=== PATIENT | female | born 1975 | race African-American/Black ===

== ENCOUNTER 2019-02-12 16:48 | Emergency (ER) | payer OTHER ==
--- NOTE | 2019-02-12 17:03 | PDOC ---
History of Present Illness - General Chief Complaint: Urinary Problem Stated Complaint: POSSIBLE UTI Time Seen by Provider: 02/12/19 17:02 - History of Present Illness Initial Comments: 02/12/19 18:25 44 year old woman with a history of DM who presents with 1 day of dysuria and hematuria. The patient denies fever, nausea, vomiting, diarrhea, constipation or blood in stool. She has no other complaints. ROS GENERAL/CONSTITUTIONAL: No fever or chills. No weakness. HEAD, EYES, EARS, NOSE AND THROAT: No change in vision. No ear pain or discharge. No sore throat. CARDIOVASCULAR: No chest pain or shortness of breath RESPIRATORY: No cough, wheezing, or hemoptysis. GASTROINTESTINAL: No nausea, vomiting, diarrhea or constipation. GENITOURINARY: No dysuria, frequency, or change in urination. MUSCULOSKELETAL: No joint or muscle swelling or pain. No neck or back pain. SKIN: No rash PE GENERAL: Awake, alert, and fully oriented, in no acute distress HEAD: No signs of trauma, normocephalic, atraumatic EYES: EOMI, sclera anicteric, conjunctiva clear ENT: oropharynx clear without exudates. Moist mucosa NECK: Normal ROM, supple LUNGS: No distress, speaks full sentences, clear to auscultation bilaterally HEART: Regular rate and rhythm, normal S1 and S2, no murmurs, rubs or gallops, peripheral pulses normal and equal bilaterally. ABDOMEN: Soft, nontender, normoactive bowel sounds. No guarding, no rebound. + RLQ masses EXTREMITIES : Normal inspection, Normal range of motion, no edema. No clubbing or cyanosis. NEUROLOGICAL: Cranial nerves II through XII grossly intact. Normal speech, normal gait, no focal sensorimotor deficits Pelvic: closed cervical os, physiologic fluid, no cervical motion tenderness MDM DDX including but not limited to: fibroid vs uti W/U: -ua, ucx, upreg, abd US ED Course: + UTI dose macrobid pending [facility] Qi Smith, PGY2 Emergency Medicine Past History - Past Medical History Allergies/Adverse Reactions: Allergies Allergy/AdvReac Type Severity Reaction Status Date / Time No Known Allergies Allergy Unverified 02/12/19 16:50 Home Medications: Ambulatory Orders Aspirin [Aspirin EC] 81 mg PO DAILY 02/12/19 Dulaglutide [Trulicity] 1.5 mg SCJ DAILY 02/12/19 Insulin Detemir [Levemir Flextouch] 25 unit SQ HS 02/12/19 Lisinopril [Prinivil] 10 mg PO DAILY 02/12/19 Metformin HCl [Glucophage] 1,000 mg PO BID 02/12/19 Discharge - Discharge Information Condition: Stable - Follow up/Referral - Patient Discharge Instructions - Post Discharge Activity
[2019-02-12 17:12] VITALS: BP 152/93; PULSE 87; TEMP 98.3; BMI 40.8
--- NOTE | 2019-02-12 17:17 | PDOC ---
Attending Attestation - Resident Resident Name: Qi Smith - HPI HPI: 02/12/19 18:59 Pt presents to the ED complaining of dysuria x 1 day. Denies fever, nausea and vomiting or flank pain. - Physicial Exam PE: 02/12/19 19:00 Agree with resident exam. + large, non tender abdominal mass in the suprapubic area. No tenderness, guarding or rebound. - Medical Decision Making 02/12/19 19:04 pt presents to the ED complaining of dysuria. Has UTI on UA. Will treat with macrobid. Also has mass of uncertain duration. Will check US to evaluate for fibroid. Will check Ct if US shows no fibroid.
[2019-02-12] MEDS ORDERED: NITROFURANTOIN MACROCRYSTAL 50 MG CAPSULE (FP) PO SCH (19:00)
[2019-02-12] MEDS ORDERED: NITROFURANTOIN MACROCRYSTAL 50 MG CAPSULE (FP) ONE (19:09)
--- NOTE | 2019-02-12 20:55 | PDOC ---
*Physical Exam - Vital Signs Last Vital Signs Temp Pulse Resp BP Pulse Ox 98.3 F 87 20 152/93 97 02/12/19 16:49 02/12/19 16:49 02/12/19 16:49 02/12/19 16:49 02/12/19 16:49 ED Treatment Course - ADDITIONAL ORDERS Additional order review: Laboratory Results 02/12/19 02/12/19 17:00 17:00 Urine Color Dark Urine Appearance Cloudy Urine pH 5.5 Urine Protein 3+ H Urine Glucose (UA) 2+ H Urine Ketones 1+ H Urine Blood 3+ H Urine Nitrite Positive H Urine Bilirubin Negative Urine Urobilinogen 0.2 Ur Leukocyte Esterase Trace H Urine RBC >100 Urine WBC 10-20 Urine Bacteria Many Urine HCG, Qual Negative - RADIOLOGY Radiology Studies Ordered: Category Date Time Status PELVIS(OTHER) US [US] Stat Ultrasound 02/12/19 19:52 Completed ED Progress Note - Progress Note Progress Note: Care of this patient received from Dr. Nayak Patient presented with urinary tract infection symptoms Abdominal/pelvic ultrasound performed to evaluate suprapubic mass palpated on physical exam. Patient was unaware of this mass being present. Abdominal/pelvic ultrasound interpreted by Dr. Somers of the radiology staff: 10 cm x 9 cm x 8 cm soft tissue mass seen in the uterine fundus. This is consistent with uterine leiomyoma. Nonemergent MRI suggested for full evaluation. Results discussed with the patient. 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 She is started on Macrodantin prescription for her urinary tract infection. She should return to the ER if she has more severe abdominal/back pain or develops fever/vomiting. She follow-up with her general medical doctor in the next few days. Discharge - Discharge Information Problems reviewed: Yes Clinical Impression/Diagnosis: UTI (urinary tract infection) Qualifiers: Urinary tract infection type: acute cystitis Hematuria presence: without hematuria Qualified Code(s): N30.00 - Acute cystitis without hematuria Uterine fibroid Qualifiers: Uterine leiomyoma location: unspecified location Qualified Code(s): D25.9 - Leiomyoma of uterus, unspecified Condition: Stable Disposition: HOME - Additional Discharge Information Prescriptions: Nitrofurantoin Monohyd/M-Cryst [Macrobid -] 100 mg PO BID #14 capsule - Follow up/Referral - Patient Discharge Instructions Patient Printed Discharge Instructions: Urinary Tract Infection, DI for Uterine Fibroids Additional Instructions: Drink plenty of water Continue Macrodantin twice a day for 1 week Follow-up with your general medical doctor within the next 5 days Follow-up with your petroleum refinery laborer within the next 1 to 2 weeks Return to ER if you have worsening pain on urination/worsening abdominal or back pain/fever/vomiting - Post Discharge Activity
== END 2019-02-12 21:22 | disposition home or self-care (01) ==
LOC: FER 16:48
DX: N30.00 Acute cystitis without hematuria (principal); D25.9 Leiomyoma of uterus, unspecified; E11.9 Type 2 diabetes mellitus without complications; Z79.82 Long term (current) use of aspirin
CPT/HCPCS: 76700-TC; 76856-TC; 81003; 81015; 84703; 87086; 87186; 99282-25